=== PATIENT | male | born 1990 | race Caucasian/White ===

== ENCOUNTER 2022-04-19 09:41 | Emergency (ER) | payer SELFPAY ==
[~2022-04-19] VITALS: Ht 165.1 cm; Wt 77.1 kg
--- NOTE | 2022-04-19 10:15 | NUR ---
C/O RUQ ABDOMINAL PAIN WITH NAUSEA AND VOMITTING X 2 DAYS. PT AMBULATED TO BED WITH STEADY GAIT, VITAL SIGNS STABLE. AAOX4. AWAITING MD ORDERS.
--- NOTE | 2022-04-19 10:20 | NUR ---
URINE SAMPLE COLLECTED AND SENT TO LAB.
--- NOTE | 2022-04-19 10:21 | NUR ---
ESTABLISHED IV ACCESS ON LEFT AC 18G, BLOOD DRAWN AND SENT TO LAB.
[2022-04-19 10:29] LABS: BASOPHILS % (AUTO) 0.3 % (0.0-2.0); EOSINOPHILS % (AUTO) 1.3 % (0.0-6.0); HEMATOCRIT 46 % (39-51); HEMOGLOBIN 15.5 g/dL (13.5-17.5); LYMPHOCYTES # (AUTO) 0.8 K/uL (0.8-4.8); LYMPHOCYTES % (AUTO) 12.5 % (20.0-44.0); MEAN CORPUSCULAR HGB CONC 34 g/dl (31.0-36.0); MEAN CORPUSCULAR VOLUME 84 fL (80-96); MONOCYTES # (AUTO) 0.5 K/uL (0.1-1.30); MONOCYTES % (AUTO) 7.7 % (2.0-12.0); NEUTROPHILS # (AUTO) 5.3 K/uL (1.8-8.9); NEUTROPHILS % (AUTO) 78.2 % (43.0-81.0); PLATELET COUNT (AUTO) 219 K/uL (150-450); RED BLOOD CELL COUNT(AUTO) 5.51 MIL/uL (4.5-6.0); WHITE BLOOD COUNT (AUTO) 6.7 K/uL (4.3-11.0)
[2022-04-19] MEDS ORDERED: ONDANSETRON HCL/PF 4 MG/2 ML VIAL ONE (10:29)
[2022-04-19] MEDS ORDERED: PANTOPRAZOLE 40 MG VIAL IV ONE (10:30)
[2022-04-19] MEDS ORDERED: LIDOCAINE VISCOUS 2% UD 15 ML UDC MM ONE (10:30)
[2022-04-19] MEDS ORDERED: MAG HYDROX/AL HYDROX/SIMETH 30 ML UDC PO ONE (10:30)
[2022-04-19] MEDS ORDERED: MORPHINE SULFATE INJ 2 MG/ML DISP.SYRIN IV ONE (10:30)
[2022-04-19] MEDS ORDERED: IV NS 0.9% 1,000 ML BAG IV ONE (10:30)
[2022-04-19] MEDS ORDERED: KETOROLAC TROMETHAMINE INJ 30 MG/ML VIAL IV ONE (10:30)
[2022-04-19] MEDS ORDERED: ONDANSETRON HCL/PF 4 MG/2 ML VIAL IVP ONE (10:30)
--- NOTE | 2022-04-19 10:35 | NUR ---
MEDICAL ORDERLY AT THE BEDSIDE
[2022-04-19] MEDS ORDERED: MAG HYDROX/AL HYDROX/SIMETH 30 ML UDC ONE (10:44)
[2022-04-19] MEDS ORDERED: LIDOCAINE VISCOUS 2% UD 15 ML UDC ONE (10:44)
[2022-04-19] MEDS ORDERED: PANTOPRAZOLE 40 MG VIAL ONE (10:45)
--- NOTE | 2022-04-19 11:00 | NUR ---
PT STATED FEELING LESS PAIN AFTER TAKING MEDS, CONTINUE TO MONITOR
[2022-04-19] MEDS ORDERED: FAMO-131 PO (11:18)
[2022-04-19] MEDS ORDERED: MAG355OR18 PO (11:18)
[2022-04-19] MEDS ORDERED: LOPE2CAP40 PO (11:18)
[2022-04-19 11:29] LABS: ALBUMIN 3.4 g/dL (3.4-5.0); BILIRUBIN,DIRECT 0.1 mg/dL (0.0-0.2); BILIRUBIN,TOTAL 0.3 mg/dL (0.2-1.0); CALCIUM, SERUM 7.9 mg/dL (8.5-10.1); CREATININE 0.9 mg/dL (0.6-1.3); POTASSIUM 3.7 mmol/L (3.5-5.1)
--- NOTE | 2022-04-19 12:22 | NUR ---
DCPatient discharged to home in stable condition. Written and verbal after care instructions given. Patient verbalizes understanding of instruction. IV D/KRUPA . PT LEFT THE HOME IN STABLE CONDITION
[2022-04-19 12:24] VITALS: BP 111/88
== END 2022-04-19 12:27 | disposition home or self-care (01) ==
LOC: ER 09:55
DX: R10.13 Epigastric pain (principal); K29.70 Gastritis, unspecified, without bleeding; R11.2 Nausea with vomiting, unspecified; Z79.899 Other long term (current) drug therapy
CPT/HCPCS: 99285; 96374; 76705; 96361; 96375; 85025; 80048; 83690; 80076; 36415; J2405; J7030 ×2; C9113